=== PATIENT | male | born 1940 | race Caucasian/White ===

== ENCOUNTER → 2020-11-03 | Outpatient (CLI) | payer MEDICARE, OTHER | LOC: LAB 11:39 → LAB SHORT 11:39 | DX: N39.0 Urinary tract infection, site not specified (principal) | CPT/HCPCS: 87077; 87086; 87186 ==

== ENCOUNTER 2021-05-17 12:49 | Inpatient (IN) | payer MEDICARE, OTHER ==
[~2021-05-17] VITALS: Ht 180.3 cm; Wt 111.7 kg
[2021-05-17 13:48] LABS: BASOPHILS ABSOLUTE AUTO 0.12 K/mm3 (0.00-0.23); BASOPHILS PERCENT AUTO 1 % (0-2); EOSINOPHILS PERCENT AUTO 0 % (0-6); Hematocrit 34.8 % (37.0-53.0); IMMATURE GRAN ABSOLUTE AUTO 0.26 K/mm3 (0.00-0.10); IMMATURE GRAN PERCENT AUTO 1 % (0-1); LYMPHOCYTES ABSOLUTE AUTO 0.49 K/mm3 (0.84-5.20); LYMPHOCYTES PERCENT AUTO 3 % (21-46); MONOCYTES ABSOLUTE AUTO 1.13 K/mm3 (0.16-1.47); MONOCYTES PERCENT AUTO 6 % (4-13); Mean Corpuscular HGB 30.2 pg (26.0-34.0); Mean Corpuscular HGB Conc 34.5 g/dL (31.5-36.5); Mean Corpuscular Volume 87 fL (80-100); Mean Platelet Volume 11.2 fL (9.1-12.4); NEUTROPHILS ABSOLUTE AUTO 17.82 K/mm3 (1.96-9.15); NEUTROPHILS PERCENT AUTO 90 % (41-73); Platelet Count 197 K/mm3 (150-400); RDW Standard Deviation 45.1 fL (35.1-46.3); Red Blood Cell Count 3.98 M/mm3 (4.30-5.90); White Blood Cell Count 19.82 K/mm3 (4.00-11.30)
[2021-05-17 14:24] LABS: Albumin, Blood 2.5 g/dL (3.4-5.0); Albumin/Globulin Ratio 0.6 (0.8-1.8); Bilirubin, Total 1.2 mg/dL (0.1-1.0); Calcium, Blood 8.3 mg/dL (8.5-10.1); Creatinine, Blood 1.47 mg/dL (0.60-1.20); Globulin, Blood 4.4 g/dL (2.2-4.0); Potassium, Blood 3.9 mmol/L (3.5-5.5); Total Protein, Blood 6.9 g/dL (6.4-8.2); Troponin I 0.344 ng/mL (0.000-0.040)
[2021-05-17] MEDS ORDERED: FUROSEMIDE20 MG PO ×2 (15:34)
[2021-05-17] MEDS ORDERED: GLIP2.5ER PO ×2 (15:34)
[2021-05-17] MEDS ORDERED: TAMSULOSIN HCL0.4 M1 PO ×2 (15:34)
[2021-05-17] MEDS ORDERED: Prinivil10 MG PO ×2 (15:34)
[2021-05-17] MEDS ORDERED: SYNTHROID50 MC1 PO ×2 (15:35)
[2021-05-17] MEDS ORDERED: XARELTO15 M1 PO ×2 (15:35)
[2021-05-17] MEDS ORDERED: METOPROLOL TAR100 M4 PO ×2 (15:35)
[2021-05-17 16:43] LABS: SARS-Cov-2 (COVID-19) PCR, MMC NEGATIVE (NEGATIVE)
[2021-05-17] MEDS ORDERED: VITAMIN D31000 UNI1 PO ×2 (16:58)
[2021-05-17] MEDS ORDERED: Vitamin B Comple1 EA PO (16:58)
[2021-05-17] MEDS ORDERED: MELATONIN5 M1 PO ×2 (16:59)
[2021-05-17] MEDS ORDERED: FERROUS GLUCON324 M3 PO ×2 (16:59)
[2021-05-17] MEDS ORDERED: ESCI10 PO ×2 (17:00)
[2021-05-17] MEDS ORDERED: CYAN500 PO ×2 (20:30)
[2021-05-17] MEDS ORDERED: [UNRECOGNIZED DRUG - OTHER] PO ×2 (20:32)
[2021-05-17] MEDS ORDERED: COLCHICINE0.6 MG PO ×2 (20:33)
[2021-05-17] MEDS ORDERED: PRED1 PO ×2 (20:35)
[2021-05-17] MEDS ORDERED: ALBU90OI6 INH ×2 (20:38)
[2021-05-17] MEDS ORDERED: BENZ100A PO ×2 (20:38)
[2021-05-17] MEDS ORDERED: DOXY100 PO ×2 (20:38)
--- NOTE | 2021-05-18 00:50 | NUR ---
CALLED DR. MACHUCA AND NOTIFIED HER OF PATIENT'S BP 173/78, THEN 166/76. ORDERS RECEIVED TO DECREASE IV FLUIDS FROM 100 MLS/HR TO 75 MLS/HR.
--- NOTE | 2021-05-18 01:16 | NUR ---
LACTATED RINGERS WAS INFUSING WHEN I STARTED MY SHIFT AT 100 MLS/HR, ALTHOUGH IT IS NOT DOCUMENTED IN THE EMAR. REDUCED RATE TO 75 MLS/HR PER ORDERS. 395 MLS LEFT TO INFUSE PER IV PUMP.
--- NOTE | 2021-05-18 03:55 | NUR ---
CALLED DR. MACHUCA. PATIENT'S BP 169/78. ORDERS RECEIVED FOR HYDRALAZINE.
[2021-05-18 05:47] LABS: BASOPHILS ABSOLUTE AUTO 0.05 K/mm3 (0.00-0.23); BASOPHILS PERCENT AUTO 0 % (0-2); EOSINOPHILS ABSOLUTE AUTO 0.01 K/mm3 (0.00-0.68); EOSINOPHILS PERCENT AUTO 0 % (0-6); Hematocrit 31.3 % (37.0-53.0); Hemoglobin 10.5 g/dL (13.5-17.5); IMMATURE GRAN ABSOLUTE AUTO 0.22 K/mm3 (0.00-0.10); IMMATURE GRAN PERCENT AUTO 1 % (0-1); LYMPHOCYTES ABSOLUTE AUTO 0.44 K/mm3 (0.84-5.20); LYMPHOCYTES PERCENT AUTO 3 % (21-46); MONOCYTES ABSOLUTE AUTO 0.79 K/mm3 (0.16-1.47); MONOCYTES PERCENT AUTO 5 % (4-13); Mean Corpuscular HGB 29.7 pg (26.0-34.0); Mean Corpuscular HGB Conc 33.5 g/dL (31.5-36.5); Mean Corpuscular Volume 89 fL (80-100); Mean Platelet Volume 11.2 fL (9.1-12.4); NEUTROPHILS ABSOLUTE AUTO 14.35 K/mm3 (1.96-9.15); NEUTROPHILS PERCENT AUTO 90 % (41-73); Platelet Count 175 K/mm3 (150-400); RDW Standard Deviation 45.7 fL (35.1-46.3); Red Blood Cell Count 3.53 M/mm3 (4.30-5.90); White Blood Cell Count 15.86 K/mm3 (4.00-11.30)
[2021-05-18 06:30] LABS: Bun/Creatinine Ratio 21.2 (12.0-20.0); Creatinine, Blood 1.37 mg/dL (0.60-1.20); Potassium, Blood 3.6 mmol/L (3.5-5.5)
--- NOTE | 2021-05-18 07:50 | NUR ---
SHIFT SUMMARY: PATIENT A/OX3. HAS DENIED PAIN THROUGHOUT THE SHIFT. ON 3L O2 VIA NC BUT WEANED DOWN TO ROOM AIR. COUGHING UP MOD AMT THICK WHITE SPUTUM WITH BLOOD. ELEVATED BPS, IV FLUID RATE REDUCED AND HYDRALAZINE ORDERED. HYDRALAZINE NOT GIVEN BECAUSE SBP DECREASED BELOW 160 ON ITS OWN. STANDS TO USE URINAL WITH WALKER AND SBA. LIVES ALONE, HIS DAUGHTER CHECKS ON HIM. GRANDSON STAYED THE NIGHT LAST NIGHT BECAUSE PATIENT HAS ANXIETY R/T HOSPITAL STAYS, SAYS HIS FATHER WENT TO A HOSPITAL AND AND HIS WENT TO A HOSPITAL AND . PLAN IS FOR CT AND ECHO TODAY. REPORT GIVEN TO ONCOMING RN.
--- NOTE | 2021-05-18 08:39 | NUR ---
Audible wheezing noted, pt states he needs a breathing treatment, which was given to him. He is now sitting on side of bed, taking medications after having a little bit of breakfast. He is no longer requiring any oxygen. Brandon here to do echocardiogram.
--- NOTE | 2021-05-18 16:58 | NUR ---
Daughter Denia in room with her dad. Updated her on the pt's condition, current illness and plan of treatment. She expressed satisfaction with the conversation. Explained to her that the pt is no longer PCU status, and could possibly move to medical floor if a room opened up this evening.
[2021-05-19 04:40] LABS: BASOPHILS ABSOLUTE AUTO 0.09 K/mm3 (0.00-0.23); BASOPHILS PERCENT AUTO 1 % (0-2); EOSINOPHILS ABSOLUTE AUTO 0.14 K/mm3 (0.00-0.68); EOSINOPHILS PERCENT AUTO 1 % (0-6); Hematocrit 31.6 % (37.0-53.0); Hemoglobin 10.7 g/dL (13.5-17.5); IMMATURE GRAN PERCENT AUTO 2 % (0-1); LYMPHOCYTES ABSOLUTE AUTO 0.46 K/mm3 (0.84-5.20); LYMPHOCYTES PERCENT AUTO 3 % (21-46); MONOCYTES PERCENT AUTO 7 % (4-13); Mean Corpuscular HGB 29.2 pg (26.0-34.0); Mean Corpuscular HGB Conc 33.9 g/dL (31.5-36.5); Mean Corpuscular Volume 86 fL (80-100); Mean Platelet Volume 11.1 fL (9.1-12.4); NEUTROPHILS ABSOLUTE AUTO 11.65 K/mm3 (1.96-9.15); NEUTROPHILS PERCENT AUTO 86 % (41-73); Platelet Count 181 K/mm3 (150-400); RDW Coefficient Variation 14.1 % (11.7-14.2); RDW Standard Deviation 44.9 fL (35.1-46.3); Red Blood Cell Count 3.66 M/mm3 (4.30-5.90); White Blood Cell Count 13.54 K/mm3 (4.00-11.30)
[2021-05-19 04:59] LABS: Anion Gap 8 mmol/L (6-16); Blood Urea Nitrogen 31 mg/dL (8-24); Bun/Creatinine Ratio 27.4 (12.0-20.0); CO2, Blood 22 mmol/L (21-32); Calcium, Blood 7.9 mg/dL (8.5-10.1); Chloride, Blood 103 mmol/L (98-108); Creatinine, Blood 1.13 mg/dL (0.60-1.20); Glomerular Filtration Rate >60 (60-); Glucose, Blood 126 mg/dL (70-99); Potassium, Blood 3.8 mmol/L (3.5-5.5); Sodium, Blood 133 mmol/L (136-145)
--- NOTE | 2021-05-19 06:24 | NUR ---
SHIFT SUMMARY NO ACUTE CHANGES NOTED THROUGH THE NIGHT. SPO2 REMAINS >92% ON RA, OCCASIONAL WHEEZES NOTED, BLOOD TINGED SPUTUM CONTINUES, PT DENIES PAIN, VSS, VOIDING WNL, TOLERATING PO INTAKE. PT CALLS FOR ASSISTANCE PRN, CALL LIGHT IN REACH.
--- NOTE | 2021-05-19 09:29 | NUR ---
Pt awakened for assessment and medications. States this morning that he feels very tired and groggy. Assisted to sit up on side of bed, and he said he felt dizzy. B/p taken; 141/71, heart rate 79 bpm. After a couple of minutes he said that the dizzyness passed. Sat on side of bed, took oral medications, and wanted to go into bathroom. Noted wheezing throughout lung torres. RT Archana Miller called, requested breathing tx for pt.
--- NOTE | 2021-05-19 09:50 | NUR ---
DR Navarro here; reported pt's c/o feeling like he was spinning, as well as dark stool passed this morning.
[2021-05-19 13:59] LABS: Stool Occult Blood Guaiac 1 Pos (Neg)
--- NOTE | 2021-05-19 14:05 | NUR ---
Noted positive guaic noted, called to Dr. Navarro at this time. Telephone report given to Aleshia Monroy at this time; pt will be transferring to [facility] shortly.
--- NOTE | 2021-05-19 14:49 | NUR ---
PT ARRIVED FROM PCU VIA WHEELCHAIR. PT IS ALERT AND ORIENTED, ABLE TO SELF TRANSFER TO BED. PT DENIES VERTIGO AT THIS TIME, DENIES NEEDS AT THIS TIME. NO SIGNS OF ACUTE DISTRESS, WCTM.
--- NOTE | 2021-05-19 17:35 | NUR ---
SHIFT SUMMARY NO ACUTE EVENTS SINCE ARRIVAL FROM PCU, PT IS ORIENTED AND CALLS APPROPRIATELY. PT IS ABLE TO REPOSITION SELF IN BED, ABLE TO REPISITON TO SITTING AT EDGE OF BED WITHOUT ASSISTANCE AND DENIES DIZZINESS. VSS ON ROOM AIR, NO BOWEL MOVEMENT SINCE ARRIVAL TO UNIT. PT DENIES PAIN AT THIS TIME. WCTM.
[2021-05-20 05:53] LABS: BASOPHILS PERCENT AUTO 1 % (0-2); EOSINOPHILS ABSOLUTE AUTO 0.24 K/mm3 (0.00-0.68); EOSINOPHILS PERCENT AUTO 3 % (0-6); Hematocrit 31.5 % (37.0-53.0); Hemoglobin 10.5 g/dL (13.5-17.5); IMMATURE GRAN ABSOLUTE AUTO 0.33 K/mm3 (0.00-0.10); IMMATURE GRAN PERCENT AUTO 3 % (0-1); LYMPHOCYTES ABSOLUTE AUTO 0.61 K/mm3 (0.84-5.20); LYMPHOCYTES PERCENT AUTO 6 % (21-46); MONOCYTES ABSOLUTE AUTO 0.76 K/mm3 (0.16-1.47); MONOCYTES PERCENT AUTO 8 % (4-13); Mean Corpuscular HGB 29.5 pg (26.0-34.0); Mean Corpuscular HGB Conc 33.3 g/dL (31.5-36.5); Mean Corpuscular Volume 89 fL (80-100); Mean Platelet Volume 11.1 fL (9.1-12.4); NEUTROPHILS PERCENT AUTO 79 % (41-73); Platelet Count 198 K/mm3 (150-400); RDW Coefficient Variation 14.1 % (11.7-14.2); RDW Standard Deviation 45.9 fL (35.1-46.3); Red Blood Cell Count 3.56 M/mm3 (4.30-5.90); White Blood Cell Count 9.64 K/mm3 (4.00-11.30)
[2021-05-20 06:21] LABS: Anion Gap 7 mmol/L (6-16); Blood Urea Nitrogen 30 mg/dL (8-24); Bun/Creatinine Ratio 26.5 (12.0-20.0); CO2, Blood 24 mmol/L (21-32); Calcium, Blood 7.7 mg/dL (8.5-10.1); Chloride, Blood 105 mmol/L (98-108); Creatinine, Blood 1.13 mg/dL (0.60-1.20); Glomerular Filtration Rate >60 (60-); Glucose, Blood 111 mg/dL (70-99); Potassium, Blood 3.5 mmol/L (3.5-5.5); Sodium, Blood 136 mmol/L (136-145)
--- NOTE | 2021-05-20 06:42 | NUR ---
SANITARY PLUMBER SUMMARY PT AAOX4 AND STANDBY ASSIST TO BATHROOM. PT HAS HAD SOME THICK BLOODY SPUTUM SINCE YESTERDAY. PER RN REPORT PT HAD DARK BLACK STOOLS YESTERDAY. THIS AM PTS STOOL MORE DARK BROWN. VSS, WILL CONTINUE TO MONITOR.
--- NOTE | 2021-05-20 18:24 | NUR ---
SHIFT SUMMARY PT AAOX4, TAKOT[place], ABLE TO MAKE NEEDS KNOWN, PLEASANT AND COOPERATIVE TO CARE. NO C/O ANY PAIN. DENIES CP, SOB, OR N&V. NO ACUTE CHANGES NOTED TO PT THIS SHIFT. PT REQUIRES SBA TO BATHROOM. PT ON IV ABX ORDERED, NO ASE NOTED. PT WORKED WITH THERAPY THIS SHIFT. BED AT LOWEST POSITION. CALL LIGHT WITHIN REACH.
--- NOTE | 2021-05-21 04:47 | NUR ---
PT UP TO BR[facility] - REPORTS INCREASED LEVEL OF PAIN DUE TO GOUT IN HIS FEET. I OFFERRED HIM OXYCODONE AND PT REFUSED, HE REPORTS A BAD EXPERIENCE MANY YEARS AGO. PT IS REQUESTING 1000MG OF TYLENOL INSTEAD - RECEIVED ORDER FROM DR. MACHUCA FOR THE ABOVE. COCHICINE GIVEN PER ORDER EARLIER.
--- NOTE | 2021-05-21 06:05 | NUR ---
SHIFT SUMMARY - NO ACUTE CHANGES DURING THIS SHIFT, EXCEPT PT'S GOUT FLARED UP AFTER HE AMBULATED TO [facility] THIS AM. PT REPORTS HIS NORMAL HOME REGIME FOR HIS GOUT IS PREDNISONE, WITH 2 COLCHICINE - HE REPORTS HE SPOKE TO THE ABOUT THIS EARLIER TODAY DURING DAY SHIFT. THE REPORT I RECEIVED FROM RN YESTERDAY, IS THE PLAN IS FOR DISCHARGE TODAY. PT REPORTS HIS DAUGHTER WILL BE ABLE TO PICK HIM UP TODAY. PT HAS CONTINUED TO COUGH UP RED BLOODY SPUTUM. H&H STABLE THIS AM. FLUIDS AT BEDSIDE. CALL LIGHT WITHIN REACH. BED IN LOW POSITION.
[2021-05-21 06:13] LABS: Hematocrit 30.1 % (37.0-53.0); Hemoglobin 10.1 g/dL (13.5-17.5); Mean Corpuscular HGB 29.9 pg (26.0-34.0); Mean Corpuscular HGB Conc 33.6 g/dL (31.5-36.5); Mean Corpuscular Volume 89 fL (80-100); Mean Platelet Volume 10.4 fL (9.1-12.4); Platelet Count 222 K/mm3 (150-400); RDW Coefficient Variation 14.3 % (11.7-14.2); RDW Standard Deviation 46.5 fL (35.1-46.3); Red Blood Cell Count 3.38 M/mm3 (4.30-5.90); White Blood Cell Count 8.12 K/mm3 (4.00-11.30)
--- NOTE | 2021-05-21 16:56 | NUR ---
SHIFT SUMMARY PT ALERT ORIENTEDX4; CALLS APPROPRIATELY. PT IRRITABLE AT TIMES. WOUND VAC IN PLACED AND INTACT. MEDICATED PER EMAR. SURGEON AT BEDSIDE TODAY. NO OTHER CONCERS. BED IS IN THE LOWEST POSITION AND CALL LIGHT WITHIN REACH
--- NOTE | 2021-05-21 17:45 | NUR ---
SHIFT SUMMARY PT AOX4; VERY [place]. PT MEDICATED PER EMAR FOR PAIN AND DR ORDERED PREDNISONE ONE TIME WELL. PT RECEIVING ABX. PT PAINFUL ON HIS FEET AT TIMES BECAUSE OF GOUT. DENIES SOB OR CP. BED IS IN THE LOWEST POSITION AND CALL LIGHT WITHIN REACH
[2021-05-22 05:57] LABS: Hematocrit 31.9 % (37.0-53.0); Hemoglobin 10.6 g/dL (13.5-17.5); Mean Corpuscular HGB 29.7 pg (26.0-34.0); Mean Corpuscular HGB Conc 33.2 g/dL (31.5-36.5); Mean Corpuscular Volume 89 fL (80-100); Mean Platelet Volume 10.3 fL (9.1-12.4); Platelet Count 271 K/mm3 (150-400); RDW Coefficient Variation 14.4 % (11.7-14.2); RDW Standard Deviation 47.2 fL (35.1-46.3); Red Blood Cell Count 3.57 M/mm3 (4.30-5.90); White Blood Cell Count 7.76 K/mm3 (4.00-11.30)
--- NOTE | 2021-05-22 06:24 | NUR ---
call light in reach, a+o, saline locked on rm air, continued to cough up red tinged sputum, will continue to monitor and treat until share bsr with noc nurse and pt
[2021-05-22] MEDS ORDERED: GUAI600T33 PO ×2 (11:46)
[2021-05-22] MEDS ORDERED: PANT20 PO ×2 (11:47)
[2021-05-22] MEDS ORDERED: CEFD300 PO ×2 (11:47)
[2021-05-22] MEDS ORDERED: [UNRECOGNIZED DRUG - OTHER] PO ×2 (11:49)
[2021-05-22] MEDS ORDERED: LACTOBAC PO ×2 (11:49)
--- NOTE | 2021-05-22 12:26 | NUR ---
PT DISCHARGE TO HOME. INSTRUCTED TO FU TO PCP WITHIN NEXT AVAILABLE. PT ALSO INSTRUCTED AND EDUCATED ABOUT THE NEW MEDICATION WITH DISCHARGE PAPER. PT MEDS WAS FAXED TO [facility]. STEPHANY CLAY PT GRANDSON AT BEDSIDE DURING PT EDUCATION. PT EDUCATION PACKET PRINTED ABOUT PNEUMONIA. NO OTHER CONCERNS NOTED
== END 2021-05-22 12:15 | disposition home or self-care (01) | DRG 194 ==
LOC: ER 12:49 → MEDS 17:19 → PCU 17:19 → MEDS 05-19 14:29
PROVIDERS: Physician Assistant; ADMIT Internal Medicine
DX: J18.9 Pneumonia, unspecified organism (principal); R04.2 Hemoptysis; K21.9 Gastro-esophageal reflux disease without esophagitis; Z20.822 Contact with and (suspected) exposure to COVID-19; I48.91 Unspecified atrial fibrillation; R79.89 Other specified abnormal findings of blood chemistry; E11.9 Type 2 diabetes mellitus without complications; N40.0 Benign prostatic hyperplasia without lower urinary tract symptoms; I25.10 Atherosclerotic heart disease of native coronary artery without angina pectoris; Z95.1 Presence of aortocoronary bypass graft; Z79.01 Long term (current) use of anticoagulants; Z87.891 Personal history of nicotine dependence; Z79.899 Other long term (current) drug therapy
CPT/HCPCS: 36415; 71046; 80048; 80053; 82270; 82947; 84145; 84443; 84484; 85025; 85027; 87070; 87205; 93005; 93010; 94640; 94644; 94760; 94762; 96374; 96375; 97110; 97116; 97162; 99285-25; A9270; C1751; C8923; C9113; J0360; J0456; J0696; J7050; J7120; J7512; U0004

== ENCOUNTER 2021-05-24 09:17 | Emergency (ER) | payer MEDICARE, OTHER ==
[~2021-05-24] VITALS: Ht 180.3 cm; Wt 100.7 kg
[~2021-05-24 09:17] MED LIST: ALBU90OI6 INH; BENZ100A PO; CEFD300 PO; COLCHICINE0.6 MG PO; CYAN500 PO; DOXY100 PO; ESCI10 PO; FERROUS GLUCON324 M3 PO; FUROSEMIDE20 MG PO; GLIP2.5ER PO; GUAI600T33 PO; LACTOBAC PO; MELATONIN5 M1 PO; METOPROLOL TAR100 M4 PO; PANT20 PO; PRED1 PO; Prinivil10 MG PO; SYNTHROID50 MC1 PO; TAMSULOSIN HCL0.4 M1 PO; VITAMIN D31000 UNI1 PO; Vitamin B Comple1 EA PO; XARELTO15 M1 PO; [UNRECOGNIZED DRUG - OTHER] PO; [UNRECOGNIZED DRUG - OTHER] PO
[2021-05-24 10:51] LABS: BASOPHILS ABSOLUTE AUTO 0.06 K/mm3 (0.00-0.23); BASOPHILS PERCENT AUTO 1 % (0-2); EOSINOPHILS ABSOLUTE AUTO 0.17 K/mm3 (0.00-0.68); EOSINOPHILS PERCENT AUTO 3 % (0-6); Hematocrit 36.5 % (37.0-53.0); Hemoglobin 11.8 g/dL (13.5-17.5); IMMATURE GRAN ABSOLUTE AUTO 0.05 K/mm3 (0.00-0.10); IMMATURE GRAN PERCENT AUTO 1 % (0-1); LYMPHOCYTES PERCENT AUTO 9 % (21-46); MONOCYTES ABSOLUTE AUTO 0.67 K/mm3 (0.16-1.47); MONOCYTES PERCENT AUTO 10 % (4-13); Mean Corpuscular HGB 29.4 pg (26.0-34.0); Mean Corpuscular HGB Conc 32.3 g/dL (31.5-36.5); Mean Corpuscular Volume 91 fL (80-100); Mean Platelet Volume 9.7 fL (9.1-12.4); NEUTROPHILS ABSOLUTE AUTO 4.87 K/mm3 (1.96-9.15); NEUTROPHILS PERCENT AUTO 76 % (41-73); Platelet Count 394 K/mm3 (150-400); RDW Coefficient Variation 14.6 % (11.7-14.2); RDW Standard Deviation 48.9 fL (35.1-46.3); Red Blood Cell Count 4.02 M/mm3 (4.30-5.90); White Blood Cell Count 6.42 K/mm3 (4.00-11.30)
[2021-05-24 12:00] LABS: Albumin, Blood 2.5 g/dL (3.4-5.0); Albumin/Globulin Ratio 0.6 (0.8-1.8); Alk Phos 92 U/L (50-136); Anion Gap 6 mmol/L (6-16); Aspartate Aminotrans (AST/SGOT 46 U/L (12-37); Bilirubin, Total 0.5 mg/dL (0.1-1.0); Blood Urea Nitrogen 16 mg/dL (8-24); Bun/Creatinine Ratio 14.4 (12.0-20.0); CO2, Blood 26 mmol/L (21-32); Calcium, Blood 8.2 mg/dL (8.5-10.1); Chloride, Blood 109 mmol/L (98-108); Creatinine, Blood 1.11 mg/dL (0.60-1.20); Globulin, Blood 4.3 g/dL (2.2-4.0); Glomerular Filtration Rate >60 (60-); Glucose, Blood 91 mg/dL (70-99); Potassium, Blood 3.8 mmol/L (3.5-5.5); Sodium, Blood 141 mmol/L (136-145); Total Protein, Blood 6.8 g/dL (6.4-8.2); Troponin I 0.016 ng/mL (0.000-0.040)
[2021-05-24 12:15] LABS: Alanine Aminotransfer (ALT/SGP 71 U/L (12-78)
[2021-05-24] MEDS ORDERED: XARELTO15 M1 PO (14:28)
[2021-05-24] MEDS ORDERED: ALBU2.5V5 INH (14:51)
[2021-05-24] MEDS ORDERED: AMOCLA875 PO (14:51)
[2021-05-24] MEDS ORDERED: BENZ100A PO (14:51)
== END 2021-05-24 15:10 | disposition home or self-care (01) ==
LOC: ER 09:17
PROVIDERS: Emergency Medicine
DX: J18.9 Pneumonia, unspecified organism (principal); I50.9 Heart failure, unspecified; Z88.8 Allergy status to other drugs, medicaments and biological substances; Z79.891 Long term (current) use of opiate analgesic
CPT/HCPCS: 36415; 71260; 80053; 83880; 84484; 85025; 93005; 93010; 96365; 99285-25; A9270; J0696; Q9967

== ENCOUNTER 2023-06-29 14:26 | Observation (INO) | payer MEDICARE, OTHER ==
[~2023-06-29] VITALS: Ht 180.3 cm; Wt 81.3 kg
[~2023-06-29 14:26] MED LIST changes: +ALBU2.5V5 INH; +AMOCLA875 PO; +ELIQUIS5 M2 PO; +INDO50 PO; +METO100 PO; -METOPROLOL TAR100 M4 PO; +Masophen325 MG PO
[2023-06-29 15:30] LABS: BASOPHILS ABSOLUTE AUTO 0.05 K/mm3 (0.00-0.23); BASOPHILS PERCENT AUTO 1 % (0-2); EOSINOPHILS ABSOLUTE AUTO 0.32 K/mm3 (0.00-0.68); EOSINOPHILS PERCENT AUTO 4 % (0-6); Hemoglobin 12.1 g/dL (13.5-17.5); IMMATURE GRAN ABSOLUTE AUTO 0.02 K/mm3 (0.00-0.10); IMMATURE GRAN PERCENT AUTO 0 % (0-1); LYMPHOCYTES ABSOLUTE AUTO 1.62 K/mm3 (0.84-5.20); LYMPHOCYTES PERCENT AUTO 20 % (21-46); MONOCYTES PERCENT AUTO 9 % (4-13); Mean Corpuscular HGB 30.1 pg (26.0-34.0); Mean Corpuscular HGB Conc 33.6 g/dL (31.5-36.5); Mean Corpuscular Volume 90 fL (80-100); NEUTROPHILS ABSOLUTE AUTO 5.47 K/mm3 (1.96-9.15); NEUTROPHILS PERCENT AUTO 67 % (41-73); Platelet Count 197 K/mm3 (150-400); RDW Coefficient Variation 13.2 % (11.7-14.2); RDW Standard Deviation 43.7 fL (35.1-46.3); Red Blood Cell Count 4.02 M/mm3 (4.30-5.90); White Blood Cell Count 8.18 K/mm3 (4.00-11.30)
[2023-06-29 15:57] LABS: Albumin, Blood 3.2 g/dL (3.4-5.0); Albumin/Globulin Ratio 0.9 (0.8-1.8); Bilirubin, Total 0.2 mg/dL (0.1-1.0); Bun/Creatinine Ratio 22.6 (12.0-20.0); Calcium, Blood 8.3 mg/dL (8.5-10.1); Creatinine, Blood 1.33 mg/dL (0.60-1.20); Globulin, Blood 3.5 g/dL (2.2-4.0); Potassium, Blood 4.1 mmol/L (3.5-5.5); Total Protein, Blood 6.7 g/dL (6.4-8.2)
[2023-06-29] MEDS ORDERED: ALLO100 PO (19:35)
[2023-06-29] MEDS ORDERED: FINA5 PO (19:35)
[2023-06-29 20:48] VITALS: BP 147/90
[2023-06-29] MEDS ORDERED: Prednisone10 MG PO (21:08)
[2023-06-29] MEDS ORDERED: COLCHICINE0.6 MG PO (21:08)
--- NOTE | 2023-06-30 04:26 | NUR ---
PT ADMITTED TO FLOOR, TELE IN PLACE SHOWS PACED RHYTHM \,NO CP NO DISTRESS. AT BEDSIDE TO ASSIST WITH PT SINCE PT IS VERY HARD OF HEARING. PT REFUSED HEPARINE BLOOD THINNER BECAUSE OF HX WITH BLOOD THINNING MEDICATION SO SCDS WERE PLACED TO HELP PREVENT BLOOD CLOTS. PT AWARE OF POTENTIAL ISSUES WITH REFUSING BLOOD THINNER AND STATES HE HAS HAD THEM IN THE PAST AND THEY CAUSED ISSUES. PT SLEEPING NO DISTRESS.
[2023-06-30 05:12] VITALS: BP 134/66
[2023-06-30 06:40] LABS: Bun/Creatinine Ratio 25.5 (12.0-20.0); Creatinine, Blood 1.06 mg/dL (0.60-1.20); Potassium, Blood 3.9 mmol/L (3.5-5.5)
[2023-06-30 08:09] VITALS: BP 152/92
[2023-06-30 15:03] VITALS: BP 157/75
--- NOTE | 2023-06-30 16:48 | NUR ---
SHIFT SUMMARY NUC MED TESTING SCHEDULED FOR AM ON 07/01, NPO AT MIDNIGHT ORDER PLACED. IV PATENT. NO C/O CHEST PAIN OR DISCOMFORT THIS SHIFT. AGREEABLE TO TAKE HEPARIN INJECTIONS. WILL CONTINUE TO MONITOR
[2023-06-30 19:34] VITALS: BP 152/58
--- NOTE | 2023-07-01 04:20 | NUR ---
SHIFT SUMMARY *ADARSH IS ALERT AND FULLY ORIENTED AT THE BEGINNING OF THE SHIFT, HE IS PLEASANT AND COOPERATIVE, WITH AT BEDSIDE TO ASSIST. HE IS INDEPENDENT IN HIS ROOM AND HAD NO ACUTE CHANGES IN CONDITION. PT DENIES PAIN OR DISCOMFORT AND SLEPT THROUGH MOST OF THE NIGHT. HE DID WAKE UP ASKING FOR A SHOWER AT 1 AM. AFTER REORIENTING TO THE TIME HE DECIDED TO GO BACK TO SLEEP. HE HAS BEEN NPO SINCE MIDNIGHT AND IS AWAITING A STRESS TEST IN THE [facility]. PT IS CURRENTLY RESTING BE BED WITH CALL LIGHT IN REACH.
--- NOTE | 2023-07-01 05:26 | NUR ---
THIS SURGERY TECHNICIAN HAS REVIEWED AND AGREES WITH ALL NOTES AND ASSESSMENTS BY KAIDEN MONROE.
[2023-07-01 07:11] VITALS: BP 181/90
--- NOTE | 2023-07-01 09:00 | NUR ---
pt sitting up on the side of the bed, awake, a/ox4, pleasant and cooperative with care, follows commands well, denies pain, lungs are clear t/o, resp even and unlabored, no cough noted, hrr, paced rhythm, no edema noted, ppp+1, cap refill <3sec, vs stable, afebrile, piv site to rfa is clear and patent, btx4, abd flat soft nontender, voids without diff, skin c/w/d, maew, mica, call light in reach.
[2023-07-01] MEDS ORDERED: ATOR40TA PO (12:51)
[2023-07-01] MEDS ORDERED: ASPI81CH PO (12:52)
--- NOTE | 2023-07-01 13:30 | NUR ---
Pt discharged to home, new medication faxed to his pharmacy, iv removed intact, went over discharge instructions with him and spouce, verbalized understanding of instructions for f/u etc. left with all belongings via wheelchair with cloud automation tester in attendence.
== END 2023-07-01 13:40 | disposition home or self-care (01) ==
LOC: ER 14:26 → MEDS 14:27
PROVIDERS: Student in an Organized Health Care Education/Training Program; ADMIT Hospitalist
DX: R07.89 Other chest pain (principal); D64.9 Anemia, unspecified; I25.10 Atherosclerotic heart disease of native coronary artery without angina pectoris; I12.9 Hypertensive chronic kidney disease with stage 1 through stage 4 chronic kidney disease, or unspecified chronic kidney disease; E11.22 Type 2 diabetes mellitus with diabetic chronic kidney disease; N18.32 Chronic kidney disease, stage 3b; I48.91 Unspecified atrial fibrillation; N40.0 Benign prostatic hyperplasia without lower urinary tract symptoms; E78.5 Hyperlipidemia, unspecified; Z88.8 Allergy status to other drugs, medicaments and biological substances; Z79.899 Other long term (current) drug therapy; Z95.5 Presence of coronary angioplasty implant and graft
CPT/HCPCS: 36415; 71046; 78452; 80048; 80053; 83036; 83690; 84484; 85025; 93005; 93010; 93017; 96372; 99285-25; A9270; A9500; G0378; J0280; J1644; J2785

== ENCOUNTER 2025-01-20 12:11 | Emergency (ER) | payer MEDICARE ==
[~2025-01-20] VITALS: Ht 177.8 cm; Wt 90.7 kg
[~2025-01-20 12:11] MED LIST changes: +ALLO100 PO; +ASPI81CH PO; +ATOR40TA PO; +CHOLECALCIFEROL PO; +FINA5 PO; +MELATONIN TR10 MG PO; +Prednisone10 MG PO
[2025-01-20 12:59] LABS: BASOPHILS ABSOLUTE AUTO 0.11 K/mm3 (0.00-0.23); BASOPHILS PERCENT AUTO 1 % (0-2); EOSINOPHILS ABSOLUTE AUTO 0.35 K/mm3 (0.00-0.68); EOSINOPHILS PERCENT AUTO 4 % (0-6); Hematocrit 37.3 % (37.0-53.0); Hemoglobin 12.3 g/dL (13.5-17.5); IMMATURE GRAN ABSOLUTE AUTO 0.02 K/mm3 (0.00-0.10); IMMATURE GRAN PERCENT AUTO 0 % (0-1); LYMPHOCYTES ABSOLUTE AUTO 1.19 K/mm3 (0.84-5.20); LYMPHOCYTES PERCENT AUTO 14 % (21-46); MONOCYTES ABSOLUTE AUTO 0.67 K/mm3 (0.16-1.47); MONOCYTES PERCENT AUTO 8 % (4-13); Mean Corpuscular HGB 29.9 pg (26.0-34.0); Mean Corpuscular Volume 91 fL (80-100); Mean Platelet Volume 9.8 fL (9.1-12.4); NEUTROPHILS ABSOLUTE AUTO 6.05 K/mm3 (1.96-9.15); NEUTROPHILS PERCENT AUTO 72 % (41-73); Platelet Count 236 K/mm3 (150-400); RDW Coefficient Variation 14.8 % (11.7-14.2); RDW Standard Deviation 49.1 fL (35.1-46.3); Red Blood Cell Count 4.12 M/mm3 (4.30-5.90); White Blood Cell Count 8.39 K/mm3 (4.00-11.30)
[2025-01-20 13:36] LABS: Albumin, Blood 3.6 g/dL (3.4-5.0); Albumin/Globulin Ratio 1.1 (0.8-1.8); Bilirubin, Total 0.7 mg/dL (0.1-1.0); Bun/Creatinine Ratio 20.2 (12.0-20.0); Calcium, Blood 8.6 mg/dL (8.5-10.1); Creatinine, Blood 0.89 mg/dL (0.60-1.20); Globulin, Blood 3.3 g/dL (2.2-4.0); Potassium, Blood 4.1 mmol/L (3.5-5.5); Total Protein, Blood 6.9 g/dL (6.4-8.2)
[2025-01-20 14:50] LABS: CORONAVIRUS COVID-19 AG Negative (NEGATIVE); INFLUENZA A AG Negative (NEGATIVE); INFLUENZA B AG Negative (NEGATIVE)
[2025-01-20] MEDS ORDERED: Furosemide 20 MG Tab PO ONE (15:25)
[2025-01-20 15:30] VITALS: BP 158/72
== END 2025-01-20 15:46 | disposition home or self-care (01) ==
LOC: ER 12:11
PROVIDERS: Emergency Medicine; Student in an Organized Health Care Education/Training Program
DX: I50.9 Heart failure, unspecified (principal); I48.91 Unspecified atrial fibrillation; I10 Essential (primary) hypertension; Z88.8 Allergy status to other drugs, medicaments and biological substances; Z79.899 Other long term (current) drug therapy; Z79.01 Long term (current) use of anticoagulants; Z87.891 Personal history of nicotine dependence
CPT/HCPCS: 71046; 80053; 83880; 84484; 85025; 87428-QW; 93005; 93010; 99285-25; A9270

== ENCOUNTER 2025-04-28 08:38 | Day surgery (SDC) | payer MEDICARE ==
[~2025-04-28] VITALS: Ht 177.8 cm; Wt 85.8 kg
[~2025-04-28 08:38] MED LIST changes: +Balanced Salt Epinephrine Irrigation Solution 500 mL IR SCH; +Moxifloxacin HCL 0.5 MG/0.1 ML 0.4MLSYR LEFTEYE SCH; +Ondansetron 4 MG SoluTab MM PRN; +PHENYLEPHRINE\\TROPICAMIDE\\TETRACAINE OPHTHALMIC DILATING SOLN LEFTEYE PRN; +Povidone-Iodine 450 DROP/30 ML Solution LEFTEYE SCH; +Povidone-Iodine 450 DROP/30 ML Solution ONE; +Tetracaine HCl/Pf 0.5% Opth Soln 4 ml ONE
[2025-04-28] MEDS ORDERED: NS 500 ML IV ONE (10:00)
--- NOTE | 2025-04-28 10:01 | NUR ---
04/28/25 1001 Britton Ruiz LATE ENTRY: AT AROUND 0948 DR. SALMERON IN ROOM TO CONVERSE WITH PATIENT. PT HAS ALLERGY TO LORAZEPAM WITH UNKNOWN REACTION. PER DOCTOR AND PHARMACY, PT WILL NOT TAKE DIAZEPAM PER ORDER. PT REQUEST TO HAVE ANESTHESIA FOR SEDATION.
[2025-04-28] MEDS ORDERED: FentaNYL Citrate 50 MCG/ML 2 ML Injection ONE (10:55)
[2025-04-28 11:20] VITALS: BP 165/83
--- NOTE | 2025-04-28 11:44 | NUR ---
04/28/25 1144 BhaktaJaspal fitzgerald PT DENIES PAIN AND NAUSEA AT THIS TIME. PT AGREEABLE TO D/C HOME.
== END 2025-04-28 11:45 | disposition home or self-care (01) ==
LOC: ORSCSDS 08:38
PROVIDERS: Student in an Organized Health Care Education/Training Program
PROC: 08RK3JZ Replacement of Left Lens with Synthetic Substitute, Percutaneous Approach (ICD-10-PCS; principal; 2025-04-28 10:30)
DX: E11.36 Type 2 diabetes mellitus with diabetic cataract (principal); H25.813 Combined forms of age-related cataract, bilateral; I48.91 Unspecified atrial fibrillation; F03.A0 Unspecified dementia, mild, without behavioral disturbance, psychotic disturbance, mood disturbance, and anxiety; I25.10 Atherosclerotic heart disease of native coronary artery without angina pectoris; Z95.1 Presence of aortocoronary bypass graft; Z95.0 Presence of cardiac pacemaker; Z79.01 Long term (current) use of anticoagulants; Z87.891 Personal history of nicotine dependence; Z79.899 Other long term (current) drug therapy
CPT/HCPCS: A9270; J3010; J7040; V2632

== ENCOUNTER 2025-05-05 09:08 | Day surgery (SDC) | payer MEDICARE ==
[~2025-05-05] VITALS: Ht 175.3 cm; Wt 84.8 kg
[~2025-05-05 09:08] MED LIST changes: -Moxifloxacin HCL 0.5 MG/0.1 ML 0.4MLSYR LEFTEYE SCH; +Moxifloxacin HCL 0.5 MG/0.1 ML 0.4MLSYR RIGHTEYE SCH; +NS 500 ML IV ONE; -Ondansetron 4 MG SoluTab MM PRN; -PHENYLEPHRINE\\TROPICAMIDE\\TETRACAINE OPHTHALMIC DILATING SOLN LEFTEYE PRN; +PHENYLEPHRINE\\TROPICAMIDE\\TETRACAINE OPHTHALMIC DILATING SOLN RIGHTEYE PRN; -Povidone-Iodine 450 DROP/30 ML Solution LEFTEYE SCH; +Povidone-Iodine 450 DROP/30 ML Solution RIGHTEYE SCH
--- NOTE | 2025-05-05 09:38 | NUR ---
05/05/25 0938 Britton Ruiz CALL LIGHT WITHIN REACH. FAMILY AT BEDSIDE.
--- NOTE | 2025-05-05 10:10 | NUR ---
05/05/25 1010 Laura Crain HR: 61 BP: 152/81 SPO2: 98% ON BLOW BY O2
[2025-05-05 10:27] VITALS: BP 152/85
--- NOTE | 2025-05-05 10:30 | NUR ---
05/05/25 1030 Shama George REDNESS NOTED IN SURGICAL EYE, AWARE, NO CONCERNS
== END 2025-05-05 10:11 | disposition home or self-care (01) ==
LOC: ORSCSDS 09:08
PROVIDERS: Student in an Organized Health Care Education/Training Program
PROC: 08RJ3JZ Replacement of Right Lens with Synthetic Substitute, Percutaneous Approach (ICD-10-PCS; principal; 2025-05-05 11:00)
DX: E11.36 Type 2 diabetes mellitus with diabetic cataract (principal); H25.811 Combined forms of age-related cataract, right eye; Z96.1 Presence of intraocular lens; Z95.0 Presence of cardiac pacemaker; Z95.1 Presence of aortocoronary bypass graft; I48.91 Unspecified atrial fibrillation; N40.0 Benign prostatic hyperplasia without lower urinary tract symptoms; I25.10 Atherosclerotic heart disease of native coronary artery without angina pectoris; Z79.01 Long term (current) use of anticoagulants; Z79.899 Other long term (current) drug therapy; Z87.891 Personal history of nicotine dependence
CPT/HCPCS: J7040; V2632